=== PATIENT | female | born 1950 | race Caucasian/White ===

== ENCOUNTER → 2016-09-12 | Outpatient (CLI) | payer OTHER ==
[2016-09-12 09:04] LABS: BASOPHILS % (AUTO) 0 % (0-2); EOSINOPHILS # (AUTO) 0.1 10^3uL; EOSINOPHILS % (AUTO) 2 % (0-4); LYMPHOCYTES # (AUTO) 2.6 X10^3; MEAN CORPUSCULAR HEMOGLOBIN 33.2 PG (26.0-34.0); MEAN CORPUSCULAR VOLUME 101 FL (80-100); MEAN PLATELET VOLUME 9.7 FL (6.0-9.5); MONOCYTES # (AUTO) 0.7 X10^3; MONOCYTES % (AUTO) 11 % (3-11); NEUTROPHILS # (AUTO) 2.8 X10^3; NEUTROPHILS % (AUTO) 46 % (51-67); PLATELET COUNT 139 10^3uL (150-450); WHITE BLOOD COUNT 6.19 10^3uL (4.0-11.0)
[2016-09-12 09:34] LABS: ALBUMIN 3.9 g/dL (3.4-5.0); CALCULATED IONIZED CALCIUM 4.2 mg/dL (3.8-4.6); TOTAL PROTEIN 6.7 g/dL (6.4-8.5)
== END ==
LOC: LAB 08:49
PROVIDERS: ATTEND Internal Medicine
DX: Z00.00 Encounter for general adult medical examination without abnormal findings (principal); E11.9 Type 2 diabetes mellitus without complications; M06.9 Rheumatoid arthritis, unspecified; G64 Other disorders of peripheral nervous system; K80.20 Calculus of gallbladder without cholecystitis without obstruction
CPT/HCPCS: 36415; 80053; 80061; 82043; 83036; 84439; 84443; 85025; 86803

== ENCOUNTER → 2016-09-27 | Outpatient (CLI) | payer OTHER | LOC: RAD 09:04 | PROVIDERS: ATTEND Internal Medicine | DX: Z12.31 Encounter for screening mammogram for malignant neoplasm of breast (principal) ==

== ENCOUNTER → 2016-12-06 | Outpatient (CLI) | payer OTHER ==
[~2016-12-06] MED LIST: ATOR10TA56 PO; CHOL200044 PO; CYAN100072 PO; ESTR-17 PO; FOLI0.4T4 PO; GBPN300C PO; HYDR-3702 PO; KCL10CCR PO; LEVO112T4 PO; METH2.5T PO; METR500T17 PO; NFLOSA25TA PO; OMEP20TA PO; PNT400TCR PO; TRAM-291ED PO; TRM50T PO; UBID100C8 PO
[2016-12-06 09:23] LABS: BASOPHILS % (AUTO) 0 % (0-2); EOSINOPHILS % (AUTO) 0 % (0-4); LYMPHOCYTES # (AUTO) 2.1 X10^3; MEAN CORPUSCULAR HGB CONC 34.2 g/dL (31.0-37.0); MEAN PLATELET VOLUME 10.1 FL (6.0-9.5); MONOCYTES # (AUTO) 1.1 X10^3; MONOCYTES % (AUTO) 10 % (3-11); NEUTROPHILS # (AUTO) 8.2 X10^3; NEUTROPHILS % (AUTO) 72 % (51-67); PLATELET COUNT 160 10^3uL (150-450); WHITE BLOOD COUNT 11.43 10^3uL (4.0-11.0)
[2016-12-06 09:25] LABS: MEAN CORPUSCULAR HEMOGLOBIN 33.8 PG (26.0-34.0); MEAN CORPUSCULAR VOLUME 99 FL (80-100)
[2016-12-06 09:57] LABS: ERYTHROCYTE SEDIMENTATION RT* 54 mm/hr (0-23)
[2016-12-06 10:02] LABS: ALBUMIN 3.9 g/dL (3.4-5.0); ANION GAP 15.7 MEQ/L (3-15); CALCULATED IONIZED CALCIUM 4.1 mg/dL (3.8-4.6); TOTAL PROTEIN 6.9 g/dL (6.4-8.5)
== END ==
LOC: LAB 09:09
PROVIDERS: ATTEND Internal Medicine
DX: E11.9 Type 2 diabetes mellitus without complications (principal); E03.8 Other specified hypothyroidism; M05.81 Other rheumatoid arthritis with rheumatoid factor of shoulder
CPT/HCPCS: 36415; 80053; 80061; 83036; 84443; 85025; 85652

== ENCOUNTER 2016-12-12 11:43 | Day surgery (SDC) | payer OTHER ==
[~2016-12-12] VITALS: Ht 157.5 cm; Wt 92.0 kg
[~2016-12-12 11:43] MED LIST changes: -ATOR10TA56 PO; -CHOL200044 PO; -CYAN100072 PO; -FOLI0.4T4 PO; -NFLOSA25TA PO; -TRAM-291ED PO; -UBID100C8 PO
--- OUTSIDE RECORDS SUMMARY | 2016-12-12 11:48 | XMS REPORT | Continuity of Care Document ---
Author Author [facility] Address Unknown Phone Unavailable Allergies Active Description Code Type Severity Reaction Onset Reported/Identified Relationship to Patient Clinical Status Yes tetanus toxoid, adsorbed [id number] Drug Allergy Unknown N/ A 07/22/2015 Medications Problems Date Dx Coded Attending Type Code Diagnosis Diagnosed By 09/17/2014 Ot 592.1 09/17/2014 Ot 486 09/17/2014 Ot 555.9 09/17/2014 Ot 714.9 09/17/2014 Ot 244.9 09/17/2014 Ot 250.00 09/17/2014 Ot 272.4 09/17/2014 Ot 715.96 09/17/2014 Ot V76.12 09/17/2014 Ot 250.00 09/17/2014 Ot 555.9 09/17/2014 Ot 592.1 09/17/2014 SULTANA PORRAS MD Ot 490 09/17/2014 TROY TAYLOR, SULTANA Quezada Ot 250.00 09/17/2014 SULTANA PORRAS MD Ot 555.9 09/17/2014 SULTANA PORRAS MD Ot 714.0 09/17/2014 SULTANA PORRAS MD Ot 611.89 09/17/2014 SULTANA PORRAS MD Ot V76.12 09/17/2014 SULTANA PORRAS MD Ot 729.5 09/17/2014 SULTANA PORRAS MD Ot 793.99 09/17/2014 SULTANA PORRAS MD Ot 729.5 09/17/2014 SLUTANA PORRAS MD Ot 782.3 09/17/2014 SULTANA PORRAS MD Ot 356.9 09/17/2014 SULTANA PORRAS MD Ot 555.9 09/17/2014 SULTANA PORRAS MD Ot 729.5 09/17/2014 SULTANA PORRAS MD Ot 782.3 09/17/2014 SULTANA PORRAS MD Ot 250.00 09/17/2014 TROY TAYLOR, SULTANA Quezada Ot 356.9 09/17/2014 TROY TAYLOR, SULTANA Quezada Ot 555.9 09/17/2014 TROY TAYLOR, SULTANA Quezada Ot 714.0 09/17/2014 TROY TAYLOR, SULTANA Quezada Ot 719.40 09/17/2014 TROY TAYLOR, SULTANA Quezada Ot 729.1 09/17/2014 SULTANA PORRAS MD Ot V70.0 09/17/2014 Ot 592.1 09/17/2014 Ot 486 09/17/2014 Ot 555.9 09/17/2014 Ot 714.9 09/17/2014 Ot 244.9 09/17/2014 Ot 250.00 09/17/2014 Ot 272.4 09/17/2014 Ot 715.96 09/17/2014 Ot V76.12 09/17/2014 Ot 250.00 09/17/2014 Ot 555.9 09/17/2014 Ot 592.1 09/17/2014 TROY TAYLOR, SULTANA Quezdaa Ot 490 09/17/2014 TROY TAYLOR, SULTANA Quezada Ot 250.00 09/17/2014 TROY TAYLOR, SULTANA Quezada Ot 555.9 09/17/2014 SULTANA PORRAS MD Ot 714.0 09/17/2014 TROY TAYLOR, SULTANA Quezada Ot 611.89 09/17/2014 SULTANA PORRAS MD Ot V76.12 09/17/2014 SULTANA PORRAS MD Ot 729.5 09/17/2014 SULTANA PORRAS MD Ot 793.99 09/17/2014 SULTANA PORRAS MD Ot 729.5 09/17/2014 SULTANA PORRAS MD Ot 782.3 09/17/2014 SULTANA PORRAS MD Ot 356.9 09/17/2014 SULTANA PORRAS MD Ot 555.9 09/17/2014 SULTANA PORRAS MD Ot 729.5 09/17/2014 SULTANA PORRAS MD Ot 782.3 09/17/2014 SULTANA PORRAS MD Ot 250.00 09/17/2014 SULTANA PORRAS MD Ot 356.9 09/17/2014 TROY TAYLOR, SULTANA Quezada Ot 555.9 09/17/2014 TROY TAYLOR, SULTANA Quezada Ot 714.0 09/17/2014 TROY TAYLOR, SULTANA Quezada Ot 719.40 09/17/2014 TROY TAYLOR, SULTANA Quezada Ot 729.1 09/17/2014 TROY TAYLOR, SULTANA Quezada Ot V70.0 09/17/2014 Ot 592.1 09/17/2014 Ot 486 09/17/2014 Ot 555.9 09/17/2014 Ot 714.9 09/17/2014 Ot 244.9 09/17/2014 Ot 250.00 09/17/2014 Ot 272.4 09/17/2014 Ot 715.96 09/17/2014 Ot V76.12 09/17/2014 Ot 250.00 09/17/2014 Ot 555.9 09/17/2014 Ot 592.1 09/17/2014 TROY TAYLOR, SULTANA Quezada Ot 490 09/17/2014 TROY TAYLOR, SULTANA Quezada Ot 250.00 09/17/2014 TROY TAYLOR, SULTANA Quezada Ot 555.9 09/17/2014 TROY TAYLOR, SULTANA Quezada Ot 714.0 09/17/2014 TROY TAYLOR, SULTANA Quezada Ot 611.89 09/17/2014 TROY TAYLOR, SULTANA Quezada Ot V76.12 09/17/2014 TROY TAYLOR, SULTANA Quezada Ot 729.5 09/17/2014 TROY TAYLOR, SULTANA Quezada Ot 793.99 09/17/2014 TROY TAYLOR, SULTANA Quezada Ot 729.5 09/17/2014 SULTANA PORRAS MD Ot 782.3 09/17/2014 TROY TAYLOR, SULTANA Quezada Ot 356.9 09/17/2014 TROY TAYLOR, SULTANA Quezada Ot 555.9 09/17/2014 SULTANA PORRAS MD Ot 729.5 09/17/2014 SULTANA PORRAS MD Ot 782.3 09/17/2014 TROY TAYLOR, SULTANA Quezada Ot 250.00 09/17/2014 SULTANA PORRAS MD Ot 356.9 09/17/2014 SULTANA PORRAS MD Ot 555.9 09/17/2014 TROY TAYLOR, SULTANA Quezada Ot 714.0 09/17/2014 TROY TAYLOR, SULTANA Quezada Ot 719.40 09/17/2014 TROY TAYLOR, SULTANA Quezada Ot 729.1 09/17/2014 SULTANA PORRAS MD Ot V70.0 09/23/2014 TROY TAYLOR, SULTANA Quezada Ot 250.00 09/23/2014 SULTANA PORRAS MD Ot 356.9 09/23/2014 TROY TAYLOR, SULTANA Quezada Ot 555.9 09/23/2014 TROY TAYLOR, SULTANA Quezada Ot 714.0 09/23/2014 SULTANA PORRAS MD Ot 719.40 09/23/2014 SULTANA PORRAS MD Ot 729.1 09/23/2014 SULTANA PORRAS MD Ot V70.0 09/27/2014 Ot 592.1 09/27/2014 Ot 486 09/27/2014 Ot 555.9 09/27/2014 Ot 714.9 09/27/2014 Ot 244.9 09/27/2014 Ot 250.00 09/27/2014 Ot 272.4 09/27/2014 Ot 715.96 09/27/2014 Ot V76.12 09/27/2014 Ot 250.00 09/27/2014 Ot 555.9 09/27/2014 Ot 592.1 09/27/2014 TROY TAYLOR, SULTANA Quezada Ot 490 09/27/2014 TROY TAYLOR, SULTANA Quezada Ot 250.00 09/27/2014 SULTANA PORRAS MD Ot 555.9 09/27/2014 SULTANA PORRAS MD Ot 714.0 09/27/2014 SULTANA PORRAS MD Ot 611.89 09/27/2014 SULTANA PORRAS MD Ot V76.12 09/27/2014 SULTANA PORRAS MD Ot 729.5 09/27/2014 SULTANA PORRAS MD Ot 793.99 09/27/2014 SULTANA PORRAS MD Ot 729.5 09/27/2014 SULTANA PORRAS MD Ot 782.3 09/27/2014 SULTANA PORRAS MD Ot 356.9 09/27/2014 TROY TAYLOR, SULTANA Quezada Ot 555.9 09/27/2014 TROY TAYLOR, SULTANA Quezada Ot 729.5 09/27/2014 TROY TAYLOR, SULTANA Quezada Ot 782.3 09/27/2014 TROY TAYLOR, SULTANA Quezada Ot 250.00 09/27/2014 TROY TAYLOR, SULTANA Quezada Ot 356.9 09/27/2014 TROY TAYLOR, SULTANA Quezada Ot 555.9 09/27/2014 TROY TAYLOR, SULTANA Quezada Ot 714.0 09/27/2014 TROY TAYLOR, SULTANA Quezada Ot 719.40 09/27/2014 TROY TAYLOR, SULTANA Quezada Ot 729.1 09/27/2014 TROY TAYLOR, SULTANA Quezada Ot V70.0 09/27/2014 TROY TAYLOR, SULTANA Quezada Ot 786.2 09/30/2014 TROY TAYLOR, SULTANA Quezada Ot 250.00 09/30/2014 TROY TAYLOR, SULTANA Quezada Ot 356.9 09/30/2014 TROY TAYLOR, SULTANA Quezada Ot 555.9 09/30/2014 TROY TAYLOR, SULTANA Quezada Ot 714.0 09/30/2014 TROY TAYLOR, SULTANA Quezada Ot 719.40 09/30/2014 TROY TAYLOR, SULTANA Quezada Ot 729.1 09/30/2014 TROY TAYLOR, SULTANA Quezada Ot V70.0 10/08/2014 TROY TAYLOR, SULTANA Quezada Ot 786.2 10/10/2014 TROY TAYLOR, SULTANA Quezada Ot V76.10 10/10/2014 TROY TAYLOR, SULTANA Quezada Ot 753.10 10/10/2014 TROY TAYLOR, SULTANA Quezada Ot V45.73 10/14/2014 TROY TAYLOR, SULTANA Quezada Ot 753.10 10/14/2014 TROY TAYLOR, SULTANA Quezada Ot V45.73 11/18/2014 TROY TAYLOR, SULTANA Quezada Ot V76.12 01/29/2015 TROY TAYLOR, SULTANA Quezada Ot 250.00 01/29/2015 TROY TAYLOR, SULTANA Quezada Ot 287.5 01/29/2015 TROY TAYLOR, SULTANA Quezada Ot 356.9 03/06/2015 TROY TAYLOR, SULTANA Quezada Ot 611.89 03/06/2015 SULTANA PORRAS MD Ot V76.12 03/24/2015 Riky TAYLOR, Rubén Quezada Ot 574.10 03/24/2015 Rubén Lan MD Ot 592.1 03/24/2015 Rubén Lan MD Ot 793.6 07/06/2015 SULTANA PORRAS MD Ot K50.90 07/06/2015 SULTANA PORRAS MD Ot K80.20 07/06/2015 SULTANA PORRAS MD Ot R11.0 07/06/2015 SULTANA PORRAS MD Ot R53.83 07/06/2015 Ot K80.20 07/06/2015 Ot R11.0 07/06/2015 Ot R53.83 07/06/2015 SULTANA PORRAS MD Ot K80.20 07/06/2015 SULTANA PORRAS MD Ot R11.0 07/23/2015 MARISELA BLANCO MD Ot K29.70 GASTRITIS, UNSPECIFIED, WITHOUT BLEEDING 07/23/2015 MARISELA BLANCO MD Ot K31.7 POLYP OF STOMACH AND DUODENUM 09/28/2015 SULTANA PORRAS MD Ot D69.6 09/28/2015 SULTANA PORRAS MD Ot E11.9 09/28/2015 SULTANA PORRAS MD Ot G64 09/28/2015 SULTANA PORRAS MD Ot Z00.00 09/28/2015 SULTANA PORRAS MD Ot Z13.6 10/19/2015 SULTANA PORRAS MD Ot Z12.31 01/20/2016 HAYDEE MTZ MD Ot K50.90 CROHN'S DISEASE, UNSPECIFIED, WITHOUT CO 01/20/2016 HAYDEE MTZ MD Ot L02.215 CUTANEOUS ABSCESS OF PERINEUM 01/20/2016 RUSLAN ANDREWS DO Ot K50.90 CROHN'S DISEASE, UNSPECIFIED, WITHOUT CO 01/20/2016 RUSLAN ANDREWS DO Ot L76.22 POSTPROC HEMOR/HEMTOM OF SKIN, SUBCU FOL 01/27/2016 HAYDEE MTZ MD, Ot K50.90 CROHN'S DISEASE, UNSPECIFIED, WITHOUT CO 01/27/2016 HAYDEE MTZ MD, Ot L02.215 CUTANEOUS ABSCESS OF PERINEUM 01/28/2016 RUSLAN ANDREWS DO Ot K50.90 CROHN'S DISEASE, UNSPECIFIED, WITHOUT CO 01/28/2016 RUSLAN ANDREWS DO Ot L76.22 POSTPROC HEMOR/HEMTOM OF SKIN, SUBCU FOL 03/10/2016 Rubén Lan MD Ot N20.0 CALCULUS OF KIDNEY 03/21/2016 Rubén Lan MD Ot N20.0 CALCULUS OF KIDNEY 06/06/2016 SULTANA PORRAS MD, Ot M05.812 OT RHEUMATOID ARTHRITIS W RHEUMATOID FA 06/06/2016 SULTANA PORRAS MD Ot M25.512 PAIN IN LEFT SHOULDER 06/06/2016 SULTANA PORRAS MD Ot M50.320 OTHER CERV DISC DEGENERATION, MID- CERVIC 06/08/2016 SULTANA PORRAS MD, Ot M05.79 RHEU ARTHRITIS W RHEU FACTOR MULT SITE W 06/20/2016 SULTANA PORRAS MD Ot M05.812 OT RHEUMATOID ARTHRITIS W RHEUMATOID FA 06/20/2016 SULTANA PORRAS MD, Ot M25.512 PAIN IN LEFT SHOULDER 06/20/2016 SULTANA PORRAS MD Ot M50.320 OTHER CERV DISC DEGENERATION, MID- CERVIC 07/07/2016 SULTANA PORRAS MD, Ot M05.79 RHEU ARTHRITIS W RHEU FACTOR MULT SITE W 08/16/2016 Rubén Lan MD Ot N20.0 CALCULUS OF KIDNEY 09/15/2016 SULTANA PORRAS MD Ot E11.9 TYPE 2 DIABETES MELLITUS WITHOUT COMPLIC 09/15/2016 SULTANA PORRAS MD Ot 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 09/15/2016 SULTANA PORRAS MD, Ot K80.20 CALCULUS OF GALLBLADDER W/O CHOLECYSTITI 09/15/2016 SULTANA PORRAS MD, Ot M06.9 RHEUMATOID ARTHRITIS, UNSPECIFIED 09/15/2016 SULTANA PORRAS MD, Ot Z00.00 ENCNTR FOR GENERAL ADULT MEDICAL EXAM W / 09/19/2016 Sultana Porras MD Z12.2 ENCNTR SCREEN FOR MALIGNANT NEOPLASM OF 09/19/2016 Sultana Porras MD Z12.2 ENCNTR SCREEN FOR MALIGNANT NEOPLASM OF 09/19/2016 Sultana Porras MD Z12.2 ENCNTR SCREEN FOR MALIGNANT NEOPLASM OF 09/19/2016 Sultana Porras MD Z12.2 ENCNTR SCREEN FOR MALIGNANT NEOPLASM OF 09/19/2016 Sultana Porras MD Z12.2 ENCNTR SCREEN FOR MALIGNANT NEOPLASM OF 09/20/2016 Ot 592.1 CALCULUS OF URETER 09/20/2016 Ot 486 PNEUMONIA, ORGANISM NOS 09/20/2016 Ot 555.9 REGIONAL ENTERITIS NOS 09/20/2016 Ot 714.9 INFLAMM POLYARTHROP NOS 09/20/2016 Ot 244.9 HYPOTHYROIDISM NOS 09/20/2016 Ot 250.00 DIAB HORACIO WO COMPL, TYPE II OR UNSPEC TY 09/20/2016 Ot 272.4 HYPERLIPIDEMIA NEC/NOS 09/20/2016 Ot 715.96 OSTEOARTHROS NOS-L/LEG 09/20/2016 Ot V76.12 OTH SCREEN MAMMO-MALIGN NEOPLASM OF GERI 09/20/2016 Ot 250.00 DIAB HORACIO WO COMPL, TYPE II OR UNSPEC TY 09/20/2016 Ot 555.9 REGIONAL ENTERITIS NOS 09/20/2016 Ot 592.1 CALCULUS OF URETER 09/20/2016 SULTANA PORRAS MD Ot 490 BRONCHITIS NOS 09/20/2016 SULTANA PORRAS MD Ot 250.00 DIAB HORACIO WO COMPL, TYPE II OR UNSPEC TY 09/20/2016 SULTANA PORRAS MD Ot 555.9 REGIONAL ENTERITIS NOS 09/20/2016 SULTANA PORRAS MD Ot 714.0 RHEUMATOID ARTHRITIS 09/20/2016 SULTANA PORRAS MD Ot 611.89 OTHER SPECIFIED DISORDERS OF BREAST 09/20/2016 SULTANA PORRAS MD Ot V76.12 OTH SCREEN MAMMO-MALIGN NEOPLASM OF GERI 09/20/2016 SULTANA PORRAS MD Ot 729.5 PAIN IN LIMB 09/20/2016 SULTANA PORRAS MD Ot 793.99 OTH NOSP (ABN) FINDINGS RADIOLOGICAL O 09/20/2016 SULTANA PORRAS MD Ot 729.5 PAIN IN LIMB 09/20/2016 SULTANA PORRAS MD Ot 782.3 EDEMA 09/20/2016 SULTANA PORRAS MD Ot 356.9 IDIO PERIPH NEURPTHY NOS 09/20/2016 SULTANA PORRAS MD Ot 555.9 REGIONAL ENTERITIS NOS 09/20/2016 SULTANA PORRAS MD Ot 729.5 PAIN IN LIMB 09/20/2016 SULTANA PORRAS MD Ot 782.3 EDEMA 09/20/2016 SULTANA PORRAS MD Ot 250.00 DIAB HORACIO WO COMPL, TYPE II OR UNSPEC TY 09/20/2016 SULTANA PORRAS MD Ot 356.9 IDIO PERIPH NEURPTHY NOS 09/20/2016 SULTANA PORRAS MD Ot 555.9 REGIONAL ENTERITIS NOS 09/20/2016 SULTANA PORRAS MD Ot 714.0 RHEUMATOID ARTHRITIS 09/20/2016 SULTANA PORRAS MD Ot 719.40 JOINT PAIN-UNSPEC 09/20/2016 SULTANA PORRAS MD Ot 729.1 MYALGIA AND MYOSITIS NOS 09/20/2016 SULTANA PORRAS MD Ot V70.0 ROUTINE MEDICAL EXAM 09/20/2016 SULTANA PORRAS MD Ot 786.2 COUGH 09/20/2016 SULTANA PORRAS MD Ot V76.12 OTH SCREEN MAMMO-MALIGN NEOPLASM OF GERI 09/20/2016 SULTANA PORRAS MD Ot 753.10 CYSTIC KIDNEY DISEASE, UNSPECIFIED 09/20/2016 SULTANA PORRAS MD Ot 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 09/20/2016 Rubén Lan MD Ot 592.0 CALCULUS OF KIDNEY 09/20/2016 Rubén Lan MD Ot 574.10 CHOLELITH W CHOLECYS NEC 09/20/2016 Rubén Lan MD Ot 592.1 CALCULUS OF URETER 09/20/2016 Rubén Lan MD Ot 793.6 NOSP (ABN) FINDINGS ON RADIOLOGICAL OT 09/20/2016 SULTANA PORRAS MD Ot 250.00 DIAB HORACIO WO COMPL, TYPE II OR UNSPEC TY 09/20/2016 SULTANA PORRAS MD Ot 287.5 THROMBOCYTOPENIA NOS 09/20/2016 SULTANA PORRAS MD Ot 356.9 IDIO PERIPH NEURPTHY NOS 09/20/2016 SULTANA PORRAS MD Ot K50.90 CROHN'S DISEASE, UNSPECIFIED, WITHOUT CO 09/20/2016 SULTANA PORRAS MD Ot K80.20 CALCULUS OF GALLBLADDER W/O CHOLECYSTITI 09/20/2016 SULTANA PORRAS MD Ot R11.0 NAUSEA 09/20/2016 SULTANA PORRAS MD Ot R53.83 OTHER FATIGUE 09/20/2016 Ot K80.20 CALCULUS OF GALLBLADDER W/O CHOLECYSTITI 09/20/2016 Ot R11.0 NAUSEA 09/20/2016 Ot R53.83 OTHER FATIGUE 09/20/2016 SULTANA PORRAS MD Ot K80.20 CALCULUS OF GALLBLADDER W/O CHOLECYSTITI 09/20/2016 SULTANA PORRAS MD Ot R11.0 NAUSEA 09/20/2016 SULTANA PORRAS MD Ot D69.6 THROMBOCYTOPENIA, UNSPECIFIED 09/20/2016 SULTANA PORRAS MD Ot E11.9 TYPE 2 DIABETES MELLITUS WITHOUT COMPLIC 09/20/2016 SULTANA PORRAS MD Ot 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 09/20/2016 SULTANA PORRAS MD Ot Z00.00 ENCNTR FOR GENERAL ADULT MEDICAL EXAM W / 09/20/2016 SULTANA PORRAS MD Ot Z13.6 ENCOUNTER FOR SCREENING FOR CARDIOVASCUL 09/20/2016 SULTANA PORRAS MD Ot Z12.31 ENCNTR SCREEN MAMMOGRAM FOR MALIGNANT NE 09/20/2016 Rubén Lan MD Ot N20.0 CALCULUS OF KIDNEY 09/20/2016 SULTANA PORRAS MD Ot M05.812 OTH RHEUMATOID ARTHRITIS W RHEUMATOID FA 09/20/2016 SULTANA PORRAS MD Ot M25.512 PAIN IN LEFT SHOULDER 09/20/2016 SULTANA PORRAS MD Ot M50.320 OTHER CERV DISC DEGENERATION, MID- CERVIC 09/20/2016 SULTANA PORRAS MD Ot M05.79 RHEU ARTHRITIS W RHEU FACTOR MULT SITE W 09/20/2016 SULTANA PORRAS MD Ot E11.9 TYPE 2 DIABETES MELLITUS WITHOUT COMPLIC 09/20/2016 SULTANA PORRAS MD Ot 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 09/20/2016 SULTANA PORRAS MD Ot K80.20 CALCULUS OF GALLBLADDER W/O CHOLECYSTITI 09/20/2016 SULTANA PORRAS MD Ot M06.9 RHEUMATOID ARTHRITIS, UNSPECIFIED 09/20/2016 SULTANA PORRAS MD Ot Z00.00 ENCNTR FOR GENERAL ADULT MEDICAL EXAM W / 09/20/2016 Ot 592.1 CALCULUS OF URETER 09/20/2016 Ot 486 PNEUMONIA, ORGANISM NOS 09/20/2016 Ot 555.9 REGIONAL ENTERITIS NOS 09/20/2016 Ot 714.9 INFLAMM POLYARTHROP NOS 09/20/2016 Ot 244.9 HYPOTHYROIDISM NOS 09/20/2016 Ot 250.00 DIAB HORACIO WO COMPL, TYPE II OR UNSPEC TY 09/20/2016 Ot 272.4 HYPERLIPIDEMIA NEC/NOS 09/20/2016 Ot 715.96 OSTEOARTHROS NOS-L/LEG 09/20/2016 Ot V76.12 OTH SCREEN MAMMO-MALIGN NEOPLASM OF GERI 09/20/2016 Ot 250.00 DIAB HORACIO WO COMPL, TYPE II OR UNSPEC TY 09/20/2016 Ot 555.9 REGIONAL ENTERITIS NOS 09/20/2016 Ot 592.1 CALCULUS OF URETER 09/20/2016 SULTANA PORRAS MD Ot 490 BRONCHITIS NOS 09/20/2016 SULTANA PORRAS MD Ot 250.00 DIAB HORACIO WO COMPL, TYPE II OR UNSPEC TY 09/20/2016 SULTANA PORRAS MD Ot 555.9 REGIONAL ENTERITIS NOS 09/20/2016 SULTANA PORRAS MD Ot 714.0 RHEUMATOID ARTHRITIS 09/20/2016 SULTANA PORRAS MD Ot 611.89 OTHER SPECIFIED DISORDERS OF BREAST 09/20/2016 SULTANA PORRAS MD Ot V76.12 OTH SCREEN MAMMO-MALIGN NEOPLASM OF GERI 09/20/2016 SULTANA PORRAS MD Ot 729.5 PAIN IN LIMB 09/20/2016 SULTANA PORRAS MD Ot 793.99 OTH NOSP (ABN) FINDINGS RADIOLOGICAL O 09/20/2016 SULTANA PORRAS MD Ot 729.5 PAIN IN LIMB 09/20/2016 SULTANA PORRAS MD Ot 782.3 EDEMA 09/20/2016 SULTANA PORRAS MD Ot 356.9 IDIO PERIPH NEURPTHY NOS 09/20/2016 SULTANA PORRAS MD Ot 555.9 REGIONAL ENTERITIS NOS 09/20/2016 SULTANA PORRAS MD Ot 729.5 PAIN IN LIMB 09/20/2016 SULTANA PORRAS MD Ot 782.3 EDEMA 09/20/2016 SULTANA PORRAS MD Ot 250.00 DIAB HORACIO WO COMPL, TYPE II OR UNSPEC TY 09/20/2016 SULTANA PORRAS MD Ot 356.9 IDIO PERIPH NEURPTHY NOS 09/20/2016 SULTANA PORRAS MD Ot 555.9 REGIONAL ENTERITIS NOS 09/20/2016 SULTANA PORRAS MD Ot 714.0 RHEUMATOID ARTHRITIS 09/20/2016 SULTANA PORRAS MD Ot 719.40 JOINT PAIN-UNSPEC 09/20/2016 SULTANA PORRAS MD Ot 729.1 MYALGIA AND MYOSITIS NOS 09/20/2016 SULTANA PORRAS MD Ot V70.0 ROUTINE MEDICAL EXAM 09/20/2016 SULTANA PORRAS MD Ot 786.2 COUGH 09/20/2016 SULTANA PORRAS MD Ot V76.12 OTH SCREEN MAMMO-MALIGN NEOPLASM OF GERI 09/20/2016 SULTANA PORRAS MD Ot 753.10 CYSTIC KIDNEY DISEASE, UNSPECIFIED 09/20/2016 SULTANA PORRAS MD Ot 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 09/20/2016 Rubén Lan MD Ot 592.0 CALCULUS OF KIDNEY 09/20/2016 Rubén Lan MD Ot 574.10 CHOLELITH W CHOLECYS NEC 09/20/2016 Rubén Lan MD Ot 592.1 CALCULUS OF URETER 09/20/2016 Rubén Lan MD Ot 793.6 NOSP (ABN) FINDINGS ON RADIOLOGICAL OT 09/20/2016 SULTANA PORRAS MD Ot 250.00 DIAB HORACIO WO COMPL, TYPE II OR UNSPEC TY 09/20/2016 SULTANA PORRAS MD Ot 287.5 THROMBOCYTOPENIA NOS 09/20/2016 SULTANA PORRAS MD Ot 356.9 IDIO PERIPH NEURPTHY NOS 09/20/2016 SULTANA PORRAS MD Ot K50.90 CROHN'S DISEASE, UNSPECIFIED, WITHOUT CO 09/20/2016 SULTANA PORRAS MD Ot K80.20 CALCULUS OF GALLBLADDER W/O CHOLECYSTITI 09/20/2016 SULTANA PORRAS MD Ot R11.0 NAUSEA 09/20/2016 SULTANA PORRAS MD Ot R53.83 OTHER FATIGUE 09/20/2016 Ot K80.20 CALCULUS OF GALLBLADDER W/O CHOLECYSTITI 09/20/2016 Ot R11.0 NAUSEA 09/20/2016 Ot R53.83 OTHER FATIGUE 09/20/2016 SULTANA PORRAS MD Ot K80.20 CALCULUS OF GALLBLADDER W/O CHOLECYSTITI 09/20/2016 SULTANA PORRAS MD Ot R11.0 NAUSEA 09/20/2016 SULTANA PORRAS MD Ot D69.6 THROMBOCYTOPENIA, UNSPECIFIED 09/20/2016 SULTANA PORRAS MD Ot E11.9 TYPE 2 DIABETES MELLITUS WITHOUT COMPLIC 09/20/2016 SULTANA PORRAS MD Ot 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 09/20/2016 SULTANA PORRAS MD Ot Z00.00 ENCNTR FOR GENERAL ADULT MEDICAL EXAM W / 09/20/2016 SULTANA PORRAS MD Ot Z13.6 ENCOUNTER FOR SCREENING FOR CARDIOVASCUL 09/20/2016 SULTANA PORRAS MD Ot Z12.31 ENCNTR SCREEN MAMMOGRAM FOR MALIGNANT NE 09/20/2016 Rubén Lan MD Ot N20.0 CALCULUS OF KIDNEY 09/20/2016 SULTANA PORRAS MD Ot M05.812 OTH RHEUMATOID ARTHRITIS W RHEUMATOID FA 09/20/2016 SULTANA PORRAS MD Ot M25.512 PAIN IN LEFT SHOULDER 09/20/2016 SULTANA PORRAS MD Ot M50.320 OTHER CERV DISC DEGENERATION, MID- CERVIC 09/20/2016 SULTANA PORRAS MD Ot M05.79 RHEU ARTHRITIS W RHEU FACTOR MULT SITE W 09/20/2016 SULTANA PORRAS MD Ot E11.9 TYPE 2 DIABETES MELLITUS WITHOUT COMPLIC 09/20/2016 SULTANA PORRAS MD Ot 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 09/20/2016 SULTANA PORRAS MD, Ot K80.20 CALCULUS OF GALLBLADDER W/O CHOLECYSTITI 09/20/2016 SULTANA PORRAS MD, Ot M06.9 RHEUMATOID ARTHRITIS, UNSPECIFIED 09/20/2016 SULTANA PORRAS MD, Ot Z00.00 ENCNTR FOR GENERAL ADULT MEDICAL EXAM W 09/23/2016 Sultana Porras MD A Z12.2 ENCNTR SCREEN FOR MALIGNANT NEOPLASM OF 09/23/2016 Sultana Porras MD Z12.2 ENCNTR SCREEN FOR MALIGNANT NEOPLASM OF 09/29/2016 SULTANA PORRAS MD, Ot Z12.31 ENCNTR SCREEN MAMMOGRAM FOR MALIGNANT NE 10/11/2016 SULTANA PORRAS MD, Ot E11.9 TYPE 2 DIABETES MELLITUS WITHOUT COMPLIC 10/11/2016 SULTANA PORRAS MD, Ot 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 10/11/2016 SULTANA PORRAS MD, Ot K80.20 CALCULUS OF GALLBLADDER W/O CHOLECYSTITI 10/11/2016 SULTANA PORRAS MD, Ot M06.9 RHEUMATOID ARTHRITIS, UNSPECIFIED 10/11/2016 SULTANA PORRAS MD, Ot Z00.00 ENCNTR FOR GENERAL ADULT MEDICAL EXAM 10/31/2016 SULTANA PORRAS MD, Ot Z12.31 ENCNTR SCREEN MAMMOGRAM FOR MALIGNANT NE Procedures Code Description Performed By Performed On [id number] EXCISION OF STOMACH, PYLORUS, ENDO, DIAG 07/23/2015 [id number] EXCISION OF DUODENUM, ENDO 07/23/2015 Results Test Result Range Comprehensive metabolic panel - 06/02/16 08:40 Sodium measurement 135 70-110 Carbon dioxide measurement 29 22-29 Serum or plasma anion gap 17.1 3-15 BLOOD UREA NITROGEN 20 7-18 CREATININE SERUM 0.74 0.6-1.2 Brucella species antibody panel (IgG, IgM) 27 10-20 Estimated glomerular filtration rate (GFR) 95.6 Estimated glomerular filtration rate (GFR) non- 79.0 OSMOLALITY,CALCULATED 281 280-300 CALCIUM 9.6 8.8-10.8 Calculated ionized calcium measurement 3.8 3.8-4.6 BILIRUBIN,TOTAL 0.9 0.1-1.0 Serum or plasma alkaline phosphatase measurement 59 38-126 ASPARTATE AMINO TRANSFERASE 35 15-37 ALANINE AMINOTRANSFERASE 31 30-65 Serum or plasma total protein measurement 8.5 6.4-8.5 Serum or plasma albumin measurement 4.7 3.4-5.0 Serum or plasma albumin/globulin mass ratio 1.236 1.1-1.8 General health panel - 06/02/16 08:40 Blood automated leukocyte count 7.85 4.0 -11.0 Erythrocytes 4.73 4.00-5.00 12.0-16.0;g/dL 15.4 12.0-15.5 Hematocrit 47.50 35.00-45.00 Automated erythrocyte mean corpuscular volume 100 80-100 Mean corpuscular hemoglobin (MCH) determination 32.6 26.0-34.0 Automated erythrocyte mean corpuscular hemoglobin concentration measurement ( mass/volume) 32.4 31.0-37.0 Erythrocyte distribution width 14.9 11.8 -15.6 Automated blood platelet count 156 150- 450 Automated blood platelet mean volume measurement 10.3 6.0-9.5 Erythrocyte sedimentation rate - 06/02/16 08:40 Erythrocyte sedimentation rate 12 0-23 Complete blood count (CBC) with automated white blood cell (WBC) differential - 09/12/16 08:53 Blood automated leukocyte count 6.19 4.0 -11.0 Erythrocytes 4.67 4.00-5.00 12.0-16.0;g/dL 15.5 12.0-15.5 Hematocrit 47.00 35.00-45.00 Automated erythrocyte mean corpuscular volume 101 80-100 Mean corpuscular hemoglobin (MCH) determination 33.2 26.0-34.0 Automated erythrocyte mean corpuscular hemoglobin concentration measurement ( mass/volume) 33.0 31.0-37.0 Erythrocyte distribution width 13.8 11.8 -15.6 Automated blood platelet count 139 150- 450 Automated blood platelet mean volume measurement 9.7 6.0-9.5 Automated neutrophil percentage 46 51- 67 Lymphocytes/100 leukocytes 41 20-46 Automated monocyte percentage 11 3-11 Eosinophil count auto 2 0-4 Automated basophil percentage 0 0-2 Automated blood neutrophil count 2.8 Blood lymphocytes count (number/volume) 2.6 Automated blood monocyte count 0.7 Blood absolute eosinophil count 0.1 Basophils 0.0 HEMOGLOBIN A1C* - 09/12/16 08:53 HEMOGLOBIN A1C* 7.5 4.0-6.0 Comprehensive metabolic panel - 09/12/16 08:53 Sodium measurement 138 70-110 CARBON DIOXIDE 29 22-29 Serum or plasma anion gap 14.0 3-15 BLOOD UREA NITROGEN 12 7-18 CREATININE SERUM 0.64 0.6-1.2 Brucella species antibody panel (IgG, IgM) 19 10-20 Estimated glomerular filtration rate (GFR) 113.0 Estimated glomerular filtration rate (GFR) non- 93.4 OSMOLALITY,CALCULATED 280 280-300 CALCIUM 9.2 8.8-10.8 Calculated ionized calcium measurement 4.2 3.8-4.6 BILIRUBIN,TOTAL 0.8 0.1-1.0 Serum or plasma alkaline phosphatase measurement 67 38-126 ASPARTATE AMINO TRANSFERASE 32 15-37 ALANINE AMINOTRANSFERASE 25 30-65 Serum or plasma total protein measurement 6.7 6.4-8.5 Serum or plasma albumin measurement 3.9 3.4-5.0 Serum or plasma albumin/globulin mass ratio 1.392 1.1-1.8 General health panel - 09/12/16 08:53 Total cell count 0.21 0.46-4.68 LIPID PANEL - 09/12/16 08:53 Cholesterol 126 50-200 HDL Cholesterol 39 40-60 Triglycerides 168 10-150 LDL CHOLESTEROL 53 50-130 VLDL Cholesterol, calc 34 4.00-40.00 Cholesterol.total/Cholesterol.in HDL 3.2 0.0-5.0 FREE T4 - 09/12/16 08:53 FREE T4 1.75 0.78-2.19 * Serum or plasma hepatitis C virus antibody signal/cutoff by immunoassay - 08:53 * Serum or plasma hepatitis C virus antibody signal/cutoff by immunoassay Negative Urine microalbumin measurement by detection limit <=20 mg/l (mass/volume) - 08:53 Urine microalbumin measurement by detection limit <=20 mg/l (mass/volume) 5.9 0.0-1.7 HEMOGLOBIN A1C* - 12/06/16 09:12 HEMOGLOBIN A1C* 6.8 4.0-6.0 Complete blood count (CBC) with automated white blood cell (WBC) differential - 12/06/16 09:12 Blood automated leukocyte count 11.43 4.0-11.0 Erythrocytes 4.17 4.00-5.00 12.0-16.0;g/dL 14.1 12.0-15.5 Hematocrit 41.20 35.00-45.00 Automated erythrocyte mean corpuscular volume 99 80-100 Mean corpuscular hemoglobin (MCH) determination 33.8 26.0-34.0 Automated erythrocyte mean corpuscular hemoglobin concentration measurement ( mass/volume) 34.2 31.0-37.0 Erythrocyte distribution width 14.4 11.8 -15.6 Automated blood platelet count 160 150- 450 Automated blood platelet mean volume measurement 10.1 6.0-9.5 Automated neutrophil percentage 72 51- 67 Lymphocytes/100 leukocytes 18 20-46 Automated monocyte percentage 10 3-11 Eosinophil count auto 0 0-4 Automated basophil percentage 0 0-2 Automated blood neutrophil count 8.2 Blood lymphocytes count (number/volume) 2.1 Automated blood monocyte count 1.1 Blood absolute eosinophil count 0.0 Basophils 0.0 Erythrocyte sedimentation rate - 12/06/16 09:12 Erythrocyte sedimentation rate 54 0-23 Comprehensive metabolic panel - 12/06/16 09:12 Sodium measurement 127 70-110 CARBON DIOXIDE 28 22-29 Serum or plasma anion gap 15.7 3-15 BLOOD UREA NITROGEN 13 7-18 CREATININE SERUM 0.62 0.6-1.2 Brucella species antibody panel (IgG, IgM) 21 10-20 Estimated glomerular filtration rate (GFR) 117.3 Estimated glomerular filtration rate (GFR) non- 96.9 OSMOLALITY,CALCULATED 274 280-300 CALCIUM 9.1 8.8-10.8 Calculated ionized calcium measurement 4.1 3.8-4.6 BILIRUBIN,TOTAL 1.1 0.1-1.0 Serum or plasma alkaline phosphatase measurement 78 38-126 ASPARTATE AMINO TRANSFERASE 20 15-37 ALANINE AMINOTRANSFERASE 25 30-65 Serum or plasma total protein measurement 6.9 6.4-8.5 Serum or plasma albumin measurement 3.9 3.4-5.0 Serum or plasma albumin/globulin mass ratio 1.300 1.1-1.8 General health panel - 12/06/16 09:12 Total cell count 2.27 0.46-4.68 LIPID PANEL - 12/06/16 09:12 Cholesterol 91 50-200 HDL Cholesterol 34 40-60 Triglycerides 103 10-150 LDL CHOLESTEROL 36 50-130 VLDL Cholesterol, calc 21 4.00-40.00 Cholesterol.total/Cholesterol.in HDL 2.7 0.0-5.0 Encounters ACCT No. Visit Date/Time Discharge Status Pt. Type Provider Facility Loc./Unit Complaint [id number] 01/20/2016 12:35:00 2015 13:15:00 DIS Emergency RUSLAN ANDREWS DO [facility] ED [id number] 01/19/2016 16:10:00 2015 09:30:00 DIS Outpatient BIBI TAYLOR, [facility] ASC I D RT. PERINEAL ABSCESS [id number] 07/23/2015 08:53:00 2014 12:05:00 DIS Outpatient FRANCIS TAYLOR, [facility] ASC EGD [id number] 06/17/2015 08:14:00 2014 23:59:59 CLS Outpatient TROY TAYLOR, [facility] RAD GALLSTONES - K80.20 [id number] 06/10/2015 08:43:00 2014 23:59:59 CLS Outpatient TROY TAYLOR, [facility] RAD NAUSEA R11.0, GALLSTONES K80.20 [id number] 03/02/2015 08:07:00 2014 23:59:59 CLS Outpatient Riky TAYLOR, [facility] RAD 592.0 CALCULUS OF KIDNEY [id number] 01/01/2015 13:08:00 2014 23:59:59 CLS Outpatient TROY TAYLOR, [facility] LAB [id number] 09/29/2014 09:48:00 2014 23:59:59 CLS Outpatient Riky TAYLOR, [facility] RAD [id number] 09/24/2014 10:49:00 2014 23:59:59 CLS Outpatient TROY TAYLOR, [facility] RAD LEFT RENAL CYST [id number] 09/22/2014 08:29:00 2014 23:59:59 CLS Outpatient TROY TAYLOR, [facility] RAD BREAST CA SCREENING [id number] 09/18/2014 08:43:00 2014 23:59:59 CLS Outpatient TORY TAYLOR, [facility] RAD COUGH, SCREENING FOR LUNG CA, LONG HX SMOKING [id number] 09/02/2014 10:49:00 2014 23:59:59 CLS Outpatient TROY TAYLOR, [facility] LAB [id number] 01/22/2014 09:42:00 2013 23:59:59 CLS Outpatient TROY TAYLOR, [facility] RAD PEDAL EDEMA; ACUTE LEG PAIN [id number] 01/21/2014 12:23:00 2013 23:59:59 CLS Outpatient TROY TAYLOR, [facility] RAD ACUTE LEG PAIN; PEDAL EDEMA 729.5 [id number] 01/18/2014 07:26:00 2013 23:59:59 CLS Outpatient TROY TAYLOR, [facility] LAB [id number] 09/19/2013 15:25:00 2013 23:59:59 CLS Outpatient TROY TAYLOR, [facility] RAD SCREENING [id number] 07/06/2013 08:40:00 2012 23:59:59 CLS Outpatient TROY TAYLOR, [facility] LAB [id number] 04/01/2013 10:07:00 2012 23:59:59 CLS Outpatient TROY TAYLOR, [facility] RAD [id number] 12/06/2016 09:44:00 Document Registration [id number] 09/27/2016 09:04:00 ACT Outpatient TROY TAYLOR, [facility] RAD SCREENING [id number] 09/12/2016 08:49:00 ACT Outpatient TROY TAYLOR, [facility] LAB [id number] 06/02/2016 09:32:00 ACT Outpatient TROY TAYLOR, [facility] LAB LAB DROP OFF: DR PORRAS [id number] 06/02/2016 08:52:00 ACT Outpatient TROY TAYLOR, [facility] RAD [id number] 03/07/2016 10:15:00 ACT Outpatient Riky TAYLOR, [facility] RAD [id number] 09/24/2015 08:44:00 ACT Outpatient TROY TAYLOR, [facility] RAD SCREENING Z12.31 [id number] 09/11/2015 09:08:00 ACT Outpatient TROY TAYLOR, [facility] LAB [id number] 06/08/2015 11:36:00 Document Registration [id number] 02/28/2013 08:14:00 Document Registration [id number] 11/10/2012 09:23:00 Document Registration [id number] 09/17/2012 14:10:00 Document Registration [id number] 05/26/2012 09:20:00 Document Registration [id number] 03/30/2012 10:41:00 Document Registration [id number] 03/02/2012 12:11:00 Document Registration
[2016-12-12 12:06] VITALS: BP 131/65
[2016-12-12] MEDS ORDERED: BUPIVACAINE/EPINEPHRINE 0.5%-1:200,000 (MARCAINE) 30 ML VIAL INJ ONE (12:18)
[2016-12-12] MEDS ORDERED: TRAM-291ED PO (12:20)
[2016-12-12] MEDS ORDERED: ATOR10TA56 PO (12:20)
[2016-12-12] MEDS ORDERED: CYAN100072 PO (12:20)
[2016-12-12] MEDS ORDERED: NFLOSA25TA PO (12:20)
[2016-12-12] MEDS ORDERED: CHOL200044 PO (12:20)
[2016-12-12] MEDS ORDERED: UBID100C8 PO (12:20)
[2016-12-12] MEDS ORDERED: FOLI0.4T4 PO (12:20)
[2016-12-12] MEDS ORDERED: MIDAZOLAM 2 MG/2 ML (VERSED) VIAL ONE (13:09)
[2016-12-12] MEDS ORDERED: KETAMINE HCL 100 MG/ML 5 ML VIAL ONE (13:09)
[2016-12-12] MEDS ORDERED: GLYCOPYRROLATE 0.2 MG/ML (ROBINUL) 1 ML VIAL ONE (13:28)
[2016-12-12 14:00] VITALS: BP 146/76
[2016-12-12 14:32] VITALS: BP 145/68
[2016-12-12 14:49] VITALS: BP 135/89
--- NOTE | 2016-12-12 14:49 | OPERATIVE REPORT ---
DATE OF OPERATION: 12/12/2016 PRE-OPERATIVE DIAGNOSIS: Perianal abscess POST-OPERATIVE DIAGNOSIS: Perineal abscess OPERATIVE PROCEDURE: Incision and drainage of perineal abscess SURGEON: Fabrice Nowak MD ANESTHESIA: IV Ketamine, [place] CRNA PERTINENT PREOPERATIVE HISTORY: This is a chronically ill 66-year-old white female with a history of Crohn's disease and previous perineal abscesses and fistulas, who presents with a 2-week history of pain and swelling on the left anterior aspect of the perianal/perirectal region. She is brought for incision and drainage. OPERATION IN DETAIL: The patient was brought to the operating room and under Ketamine anesthesia, she was placed in the lithotomy position and prepped and draped appropriately. Over the area of induration and pain a cruciate incision was made through the skin and subcutaneous tissue. Cultures were taken of the scant amount of purulent material that was obtained. The area was carefully probed to make sure that all the loculations were opened up. The wound was then circularized by cutting off the edges of the cruciate incision and then packed with iodoform gauze. A dressing of 4 x 4s, ABDs and burn net underwear were placed over the wound the patient was allowed to awaken and return to the ambulatory surgery unit in good condition. Estimated blood loss is less than 20 mL. Complications were none.
[2016-12-12] MEDS ORDERED: LACTATED RINGERS 1,000 ML IV SCH (15:05)
[2016-12-12] MEDS ORDERED: NS FLUSH 3 ML PRN IV (15:10)
[2016-12-12] MEDS ORDERED: NS FLUSH 10 ML PRN IV (15:10)
[2016-12-12] MEDS ORDERED: ONDANSETRON 4 MG (ZOFRAN) ORAL DISSOLVE TAB PO PRN (15:10)
[2016-12-12] MEDS ORDERED: morphine INJ 2 MG/ML 1 ML SYRINGE IV PRN (15:10)
[2016-12-12 15:14] VITALS: BP 136/76
[2016-12-13] MEDS ORDERED: NS FLUSH 3 ML DAILY IV SCH (09:00)
== END 2016-12-12 15:24 | disposition home or self-care (01) ==
LOC: ASC 11:43
PROVIDERS: ATTEND Surgery
DX: K61.0 Anal abscess (principal); F17.210 Nicotine dependence, cigarettes, uncomplicated; K50.90 Crohn's disease, unspecified, without complications; M06.9 Rheumatoid arthritis, unspecified; M19.90 Unspecified osteoarthritis, unspecified site; M79.7 Fibromyalgia; E11.40 Type 2 diabetes mellitus with diabetic neuropathy, unspecified; E03.9 Hypothyroidism, unspecified; E66.9 Obesity, unspecified; Z79.899 Other long term (current) drug therapy
CPT/HCPCS: 46050; 87070; 87075; 87205; J2250; J3490; J7120

== ENCOUNTER → 2016-12-23 | Outpatient (CLI) | payer OTHER ==
[~2016-12-23] MED LIST changes: +ATOR10TA56 PO; +CHOL200044 PO; +CYAN100072 PO; +FOLI0.4T4 PO; +NFLOSA25TA PO; +TRAM-291ED PO; +UBID100C8 PO
== END ==
LOC: RT 13:13
PROVIDERS: ATTEND Internal Medicine
DX: R79.81 Abnormal blood-gas level (principal)
CPT/HCPCS: 94762